=== PATIENT | female | born 1945 | race Caucasian/White ===

== ENCOUNTER 2016-09-13 13:29 | Emergency (ER) | payer MEDICARE, OTHER ==
[2016-09-13] MEDS ORDERED: fentaNYL CITRATE/PF 100 MCG/ 2ML AMP ONE (14:25)
[2016-09-13] MEDS ORDERED: fentaNYL CITRATE/PF 100 MCG/ 2ML AMP IVP ONE ×3 (14:25→15:20)
[2016-09-13 15:37] VITALS: BP 122/75
--- NOTE | 2016-09-13 15:59 | ED Physician Documentation ---
Wrist Injury - HISTORIAN Historian: patient, friend - [facility] Stated Complaint: Right wrist pain Chief Complaint: Fall Additional Information: slipped fell on ice w. rt wrist injury last noct did not come in because car has stick shift Onset: yesterday Where: home Severity: moderate Duration: worse, persistent since Context: fall, crush Location of Injury: R wrist Modifying Factors: pain on movement - ROS CONST: no problems GI/: denies: problems urinating, nausea, vomiting NEURO: none CVS/RESP: none EYES/ENT: denies: problems with vision MS/SKIN/LYMPH: none - PAST HX Past History: Rt handed Immunizations: UTD Allergies/Adverse Reactions: Allergies Allergy/AdvReac Type Severity Reaction Status Date / Time acetaminophen [From Tylenol] Allergy Verified 09/13/16 13:42 aspirin Allergy Verified 09/13/16 13:42 Home Medications: Ambulatory Orders Medication Instructions Recorded Furosemide [Furosemide] 40 mg PO DAILY 09/13/16 Losartan Potassium [Cozaar] 50 mg PO DAILY 09/13/16 Metoprolol Tartrate [Lopressor] 100 mg PO DAILY 09/13/16 Rivaroxaban [Xarelto] 20 mg PO DAILY 09/13/16 Spironolactone [Aldactone] 12.5 mg PO DAILY 09/13/16 - SOCIAL HX Smoking History: non-smoker Alcohol Use: none Drug Use: none - FAMILY HX Family History: no significant history - VITAL SIGNS Vital Signs: Vital Signs Temp Pulse Resp BP Pulse Ox 98.2 F 80 16 122/75 96 09/13/16 15:35 09/13/16 15:35 09/13/16 15:35 09/13/16 15:35 09/13/16 15:35 - REVIEWED ASSESSMENTS Nursing Assessment Reviewed: Yes Vitals Reviewed: Yes Wrist Physical Exam - Physical Exam General Appearance: mild distress, moderate distress Hand: nml inspection, non-tender Wrist: tender anatom. snuff box, pain on axial thumb load. No: normal inspection, normal ROM Neuro: sensation nml, motor nml Vascular: No: no vascular compromise (very marked swelling and eccymosis) Tendon: tendon function nml Forearm/Elbow/Arm: uninjured above wrist Head/ENT: nml inspection Neck/Back: nml inspection Resp/CVS: chest non-tender, breath sounds nml, heart sounds nml, lungs clear, reg. rate & rhythm Abdomen: non-tender ED Results Lab/Radiology - Radiology Radiology Impressions: xray reveals fracture-dislocation rt radius. Marked swelling and eccymosis - Orders Orders: ED Orders Category Date Time Status Place Saline Lock/IV Now Care 09/13/16 14:27 Active Sling to Affected Extremity 1T Care 09/13/16 15:00 Active WRIST 3 VIEWS OR MORE [RAD] Stat Exams 09/13/16 Taken fentaNYL CITRATE/PF [Duragesic] Med 09/13/16 14:25 Discontinued 100 mcg .ROUTE .STK-MED ONE fentaNYL CITRATE/PF [Duragesic] Med 09/13/16 14:25 Discontinued 25 mcg IVP NOW ONE fentaNYL CITRATE/PF [Duragesic] Med 09/13/16 15:20 Discontinued 25 mcg IVP NOW ONE fentaNYL CITRATE/PF [Duragesic] Med 09/13/16 15:10 Discontinued 50 mcg IVP NOW ONE Discharge Clincal Impression: fracture dislocation rt wrist. radius o Referrals: Baltazar Hughes MD [Primary Care Provider] - 2 Days Home Medications: Ambulatory Orders Furosemide [Furosemide] 40 mg PO DAILY 09/13/16 Losartan Potassium [Cozaar] 50 mg PO DAILY 09/13/16 Metoprolol Tartrate [Lopressor] 100 mg PO DAILY 09/13/16 Rivaroxaban [Xarelto] 20 mg PO DAILY 09/13/16 Spironolactone [Aldactone] 12.5 mg PO DAILY 09/13/16 Comments: spoke w/pt and dr demetrius ashford at [facility]. He will see in ed Condition: Fair Disposition: 02 XFER SHT-TRM HOSP Decision to Admit: NO (n) Decision Time: 16:17
--- NOTE | 2016-09-13 17:01 | Diagnostic Imaging Report ---
[facility] [id number] [facility].[address] [id number] Report Submission Date: Sep 13, 2016 2:13:58 PM MACHINE HELPER Patient Study Name: LAYLA LAUREANO Date: Sep 13, 2016 1:54:38 PM MACHINE HELPER Modality Type: CR Gender: F Description: UPPER EXTREMITY : 43 Institution: [facility] Physician: SCOUT Vazquez DO HISTORY: 71-year-old female fell, pain and swelling of the right wrist. COMPARISON: None available. TECHNIQUE: 3 views of the right wrist were performed. FINDINGS: The bones are diffusely osteopenic. There is a comminuted displaced fracture of the right distal radial metaphysis with intra-articular extension and dorsal angulation. There is a fracture of the ulna styloid with mild displacement. There are advanced osteoarthritis changes of the radial aspect of the wrist. There is dorsal tilt of the lunate. IMPRESSION: 1. Right distal radius fracture with dorsal angulation, displacement, comminution, and intra-articular extension. 2. Mildly displaced fracture of the ulna styloid. 3. 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 4. 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 Electronically signed on Sep 13, 2016 2:13:58 PM MACHINE HELPER by: Shun HERNANDEZ
== END 2016-09-13 15:30 | disposition short-term general hospital (02) ==
LOC: ED 13:29
DX: S52.91XA Unspecified fracture of right forearm, initial encounter for closed fracture (principal); W00.0XXA Fall on same level due to ice and snow, initial encounter; Y93.9 Activity, unspecified; Y99.9 Unspecified external cause status
CPT/HCPCS: 73110; J3010; 96374; 96375; 99282; 99284; S1016

== ENCOUNTER 2017-06-30 10:12 | Outpatient (CLI) | payer MEDICARE, OTHER | END 2017-06-30 10:15 | LOC: CARD 10:12 | PROVIDERS: ATTEND Internal Medicine Cardiovascular Disease | DX: I50.9 Heart failure, unspecified (principal); I48.91 Unspecified atrial fibrillation | CPT/HCPCS: G0463 ==